=== PATIENT | female | born 1955 | race Caucasian/White ===

== ENCOUNTER 2017-01-17 17:29 | Emergency (ER) | payer BC ==
[~2017-01-17] VITALS: Ht 167.6 cm; Wt 73.2 kg
[2017-01-17 17:32] VITALS: BP 128/79
[2017-01-17] MEDS ORDERED: FLUORESCEIN OPHTHALMIC 1 MG STRIP RIGHTEYE ONE (18:00)
[2017-01-17] MEDS ORDERED: PROPARACAINE OPHTH 0.5%, 15ML RIGHTEYE ONE (18:00)
[2017-01-17] MEDS ORDERED: FLUORESCEIN OPHTHALMIC 1 MG STRIP ONE (18:16)
[2017-01-17] MEDS ORDERED: PROPARACAINE OPHTH 0.5%, 15ML ONE (18:16)
== END 2017-01-17 18:56 | disposition home or self-care (01) ==
LOC: ED 18:40
DX: H57.8 Other specified disorders of eye and adnexa (principal)
CPT/HCPCS: 99283